=== PATIENT | female | born 1950 | race Caucasian/White ===

== ENCOUNTER 2018-03-16 19:48 | Outpatient (CLI) | payer MEDICARE ==
--- NOTE | 2018-03-16 22:03 | Ultrasound Report ---
Reason: LOCALIZED SWELLING ON BILATERAL LEGS Procedure Date: 03/16/2018 Accession Number: [id number] / [id number] Procedure: US - Duplex Ext Veins Bilateral CPT Code: FULL RESULT: EXAM: BILATERAL LOWER EXTREMITY VENOUS ULTRASOUND EXAM DATE: 03/16/2018 09:14 PM. CLINICAL HISTORY: LOCALIZED SWELLING ON BILATERAL LEGS. COMPARISON: None. TECHNIQUE: Real-time sonographic vascular imaging was performed by the program supervisor through the lower extremities utilizing both color-flow and Doppler spectral analysis. Multiple sales and marketing representative static images were saved for review. FINDINGS: Right: Common Femoral Vein (CFV): Normal. CFV-GSV Junction: Normal. Profunda Femoral Vein (PFV): Normal. Femoral Vein (FV) Prox: Normal. Femoral Vein (FV) Mid: Normal. Femoral Vein (FV) Dist: Normal. Popliteal Vein: Normal. Posterior Tibial Veins: Normal. Peroneal Veins: Normal. Left: Common Femoral Vein (CFV): Normal. CFV-GSV Junction: Normal. Profunda Femoral Vein (PFV): Normal. Femoral Vein (FV) Prox: Normal. Femoral Vein (FV) Mid: Normal. Femoral Vein (FV) Dist: Normal. Popliteal Vein: Normal. Posterior Tibial Veins: Normal. Peroneal Veins: Normal. Other: None. IMPRESSION: No evidence for deep venous thrombosis bilaterally. [facility]
== END 2018-03-16 19:49 | disposition home or self-care (01) ==
LOC: DI 19:48
PROVIDERS: ATTEND Family Medicine
DX: R22.43 Localized swelling, mass and lump, lower limb, bilateral (principal)
CPT/HCPCS: 93970